=== PATIENT | male | born 1970 | race Caucasian/White ===

== ENCOUNTER → 2017-08-18 | Outpatient (CLI) | payer OTHER ==
[~2017-08-18] MED LIST: NORCO 325 MG-51 TAB PO; PRINIVIL2.5 MG PO; ROXICODONE 55 MG/TAB PO; TRICOR 48MG48 MG PO; ZOCOR5 MG PO
== END ==
LOC: SUN.DIA 13:28
DX: E11.9 Type 2 diabetes mellitus without complications (principal); E78.5 Hyperlipidemia, unspecified; I10 Essential (primary) hypertension; E66.9 Obesity, unspecified; Z68.36 Body mass index [BMI] 36.0-36.9, adult; Z71.3 Dietary counseling and surveillance; Z87.891 Personal history of nicotine dependence
CPT/HCPCS: G0108

== ENCOUNTER → 2017-09-09 | Outpatient (CLI) | payer OTHER | LOC: SUN.DIA 10:51 | DX: E11.9 Type 2 diabetes mellitus without complications (principal); E78.5 Hyperlipidemia, unspecified; I10 Essential (primary) hypertension; E66.9 Obesity, unspecified; Z68.34 Body mass index [BMI] 34.0-34.9, adult; Z71.3 Dietary counseling and surveillance; Z87.891 Personal history of nicotine dependence | CPT/HCPCS: G0108 ==

== ENCOUNTER → 2017-09-16 | Outpatient (CLI) | payer OTHER | LOC: SUN.DIA 11:37 | DX: E11.9 Type 2 diabetes mellitus without complications (principal); E78.5 Hyperlipidemia, unspecified; I10 Essential (primary) hypertension; E66.09 Other obesity due to excess calories; F17.210 Nicotine dependence, cigarettes, uncomplicated | CPT/HCPCS: G0109 ==

== ENCOUNTER → 2017-09-23 | Outpatient (CLI) | payer OTHER | LOC: SUN.DIA 13:15 | DX: E11.9 Type 2 diabetes mellitus without complications (principal); E78.5 Hyperlipidemia, unspecified; I10 Essential (primary) hypertension; E66.9 Obesity, unspecified; F17.210 Nicotine dependence, cigarettes, uncomplicated | CPT/HCPCS: G0109 ==

== ENCOUNTER → 2017-09-30 | Outpatient (CLI) | payer OTHER | LOC: SUN.DIA 08:30 | DX: E11.9 Type 2 diabetes mellitus without complications (principal); E78.5 Hyperlipidemia, unspecified; I10 Essential (primary) hypertension; E66.9 Obesity, unspecified; F17.210 Nicotine dependence, cigarettes, uncomplicated ==

== ENCOUNTER → 2017-10-07 | Outpatient (CLI) | payer OTHER | LOC: SUN.DIA 11:36 | DX: E11.9 Type 2 diabetes mellitus without complications (principal); E78.5 Hyperlipidemia, unspecified; I10 Essential (primary) hypertension; E66.9 Obesity, unspecified; F17.210 Nicotine dependence, cigarettes, uncomplicated | CPT/HCPCS: G0109 ==

== ENCOUNTER 2020-07-19 08:13 | Day surgery (SDC) | payer OTHER ==
[~2020-07-19] VITALS: Ht 182.9 cm; Wt 116.4 kg
[2020-07-19 08:35] VITALS: BP 138/84; PULSE 74; TEMP 98.1
[2020-07-19] MEDS ORDERED: OZEMPIC1 MG/0.75 SQ (09:03)
[2020-07-19] MEDS ORDERED: COZAAR100 MG PO (09:04)
[2020-07-19] MEDS ORDERED: INVOKAMET3 PO (09:04)
[2020-07-19] MEDS ORDERED: LASIX 40MG TABL40 MG PO (09:05)
[2020-07-19] MEDS ORDERED: VASCEPA0.5 GM PO (09:06)
[2020-07-19] MEDS ORDERED: NOVOLOG 100U100 U/M1 SQ (09:08)
[2020-07-19] MEDS ORDERED: ZOLOFT 50MG50 MG PO (09:09)
[2020-07-19] MEDS ORDERED: LOFIBRA160 MG PO (09:10)
[2020-07-19] MEDS ORDERED: LIPITOR 80MG80 MG PO (09:10)
[2020-07-19] MEDS ORDERED: TOUJEO300 U/ML SQ (09:12)
[2020-07-19] MEDS ORDERED: DESYREL 50MG50 MG PO (09:12)
[2020-07-19] MEDS ORDERED: NEXLIZET 180-11 EACH PO (09:15)
[2020-07-19 10:20] VITALS: BP 122/85; PULSE 72; TEMP 97.8
[2020-07-19 10:35] VITALS: BP 127/87; PULSE 76
[2020-07-19 10:50] VITALS: BP 133/78; PULSE 71
--- NOTE | 2020-07-19 11:32 | NUR ---
PT RETURNED FROM ENDO PROCEDURE ROOM INTO BAY#3 PER CART. PT ALERT AND ORIENTATED. PRESENT IN BAY WHEN PT ARRIVED. PT DENIES PAIN OR NAUSEA AT THIS TIME. LUNGS CTA, HRR, BOWEL SOUNDS ACTIVE IN ALL QUADRANTS. PT REQUESTS CHOCOLATE PUDDING AND GRAPE JUICE. PT WAS PROVIDED A WARM BLANKET AND CALL LIGHT. WILL CONT TO MONITOR PROGRESS.
--- NOTE | 2020-07-19 11:36 | NUR ---
PT TOLERATING FOOD AND FLUIDS WITHOUT NAUSEA OR VOMITING. PT TALKING WITH . IVF DISCONTINUED. INT NEEDLE REMAINS. WILL CONT TO MONITOR PROGRESS.
--- NOTE | 2020-07-19 11:38 | NUR ---
PT CONTINUES TO DENY NAUSEA/VOMITING OR PAIN. TOLERATING FOOD AND FLUIDS. IV DC'D TO RIGHT HAND AND TOLERATED WELL. DISMISSAL INSTRUCTIONS WERE PROVIDED, PT DENIES QUESTIONS AND SIGNED DISMISSAL SHEETS. VSS. PT WAS TAKEN TO FAMILY VEHICLE THROUGH PT ENTRANCE UPON DISMISSAL. , TIGIST IS DRIVING.
== END 2020-07-19 11:00 | disposition home or self-care (01) ==
LOC: SDCO 08:13
DX: Z12.11 Encounter for screening for malignant neoplasm of colon (principal); D12.5 Benign neoplasm of sigmoid colon; K62.1 Rectal polyp; I10 Essential (primary) hypertension; E78.5 Hyperlipidemia, unspecified; G47.33 Obstructive sleep apnea (adult) (pediatric); F32.9 Major depressive disorder, single episode, unspecified; F41.9 Anxiety disorder, unspecified; E11.9 Type 2 diabetes mellitus without complications; Z99.89 Dependence on other enabling machines and devices; Z79.899 Other long term (current) drug therapy
CPT/HCPCS: J2704; J7030

== ENCOUNTER → 2020-09-11 | Outpatient (CLI) | payer OTHER ==
[~2020-09-11] MED LIST changes: +COZAAR100 MG PO; +DESYREL 50MG50 MG PO; +ELIQUIS 2.5 PO; +INVOKAMET3 PO; +LASIX 40MG TABL40 MG PO; +LIPITOR 80MG80 MG PO; +LOFIBRA160 MG PO; +NEXLIZET 180-11 EACH PO; +NORCO 325 MG-7.1 TAB PO; +NOVOLOG 100U100 U/M1 SQ; +OZEMPIC1 MG/0.75 SQ; +SENOKOT S 50 MG1 TAB PO; +TOUJEO300 U/ML SQ; +VASCEPA0.5 GM PO; +ZOLOFT 50MG50 MG PO
== END ==
LOC: COL.RAD 06:56
DX: M50.10 Cervical disc disorder with radiculopathy, unspecified cervical region (principal)

== ENCOUNTER 2020-10-01 16:00 | Outpatient (RCR) | payer OTHER ==
[~2020-10-01 16:00] MED LIST changes: -ELIQUIS 2.5 PO; -NORCO 325 MG-7.1 TAB PO; -SENOKOT S 50 MG1 TAB PO
== END 2020-11-13 11:36 | disposition still patient (30) ==
LOC: MKS.ESL.OT 16:00
DX: G56.23 Lesion of ulnar nerve, bilateral upper limbs (principal); G56.03 Carpal tunnel syndrome, bilateral upper limbs

== ENCOUNTER 2020-11-01 11:48 | Inpatient (IN) | payer OTHER ==
[~2020-11-01] VITALS: Ht 180.3 cm; Wt 119.7 kg
[2020-12-25] VITALS (11 sets, daily range): BP systolic 124–164; BP diastolic 67–85; PULSE 63–96; TEMP 97.6–98.4
--- NOTE | 2020-12-25 06:55 | NUR ---
0605 PATIENT ADMITT[place] [facility] [place] [facility] [place] WITH [place]ADY [place]. PATIENT ACCOMPANIES. PATIENT IS ALERT AND ORIENTED X 4. CONSENT EXPLAINED AND PATIENT SIGNED. ASSESSMENT COMPLETED. LUNGS CTA. HEART SOUNDS S1S2 AND REGULAR WITH MUMUR. BOWEL SOUNDS HEARD. SLIGHT EDEMA NOTED TO LOWER LEGS. PEDAL PULSES FELT. LEFT LEG CLEANED PER ORDER.
--- NOTE | 2020-12-25 10:31 | NUR ---
Pt. back from surgery, admitted to room 332. Pt.'s supportive Joelle at bedside. Frequent vital signs in place, vitals WNL at this time. Pt. is able to feel this RN touching his left foot. +pp to all extremeties. Pt. requesting a snack at this time. Pt. oriented to his room and call light. Pt. verbalized understanding. Call light and belongings in reach.
--- NOTE | 2020-12-25 14:34 | NUR ---
Pt. progressing w/ plan of care. Pt. noted to be pale and sweaty. VSS. Blood sugar WNL. GENO Evans attempted to be called, no answer. Voicemail left. at bedside. Call light in reach.
--- NOTE | 2020-12-25 15:00 | NUR ---
This RN spoke w/ nurse assisting w/ Dr. Lainez in the OR. This RN was able to hear Dr. Lainez on the phone. Dr. Lainez aware pt. has been sweaty and pale, he was also made aware his vitals have been WNL except blood pressure a little bit elevated compared to previous BP. New orders obtained, see orders.
--- NOTE | 2020-12-25 20:30 | NUR ---
PATIENT IS ALERT AND ORIENTED X4 SITTING UP IN BED. PATIENT NEEDS ONE ASSIST WITH WALKER. PATIENT UP TO BATHROOM. STEADY GAIT. PATIENT HAS ABEBA AND SCDS ON BILATERAL LOWER EXTREMITIES. PATIENT HAS ICE TO LEFT KNEE AND ELEVATED WITH PILLOW. PATIENT HAS IV TO LEFT HAND. PATIENT IS ON GENERAL DIET AND IS ON ACHS. PATIENT HAS INCENTIVE SPIROMETER AT BEDSIDE AND HAS BEEN TAUGHT HOW TO USE IT. PATIENT STATES THEY ARE NOT SUPPOSE TO TAKE ASPRIN DUE TO KIDNEY ISSUE. PATIENT DENIES PAIN OR FURTHER NEEDS AT THIS TIME. CALL LIGHT WITHIN REACH. HEAD TO TOE ASSESSMENT COMPLETE.
[2020-12-26] VITALS (10 sets, daily range): BP systolic 156–193; BP diastolic 80–96; PULSE 76–113; TEMP 98.1–98.8
--- NOTE | 2020-12-26 04:00 | NUR ---
PATIENT INT, TOLERATING PO LIQUIDS
--- NOTE | 2020-12-26 06:04 | NUR ---
PATIENT SLEPT ON AND OFF THROUGHOUT NIGHT. PAIN MEDS GIVEN PER ORDERS. ICE APPLIED. NO FURTHER NEEDS AT THIS TIME. WILL REPORT TO DAYSHIFT.
[2020-12-26 06:47] LABS: HEMATOCRIT 39.2 % (42.0-52.0); HEMOGLOBIN 13.9 g/dl (13.5-18.0)
--- NOTE | 2020-12-26 06:51 | NUR ---
Bedside shift report complete. Pt. reports he did not sleep overnight. Pt. reports 7/10 pain. This RN explained to the pt. she would be the pt.'s nurse again today and will look into if he is due for anything to help with pain. Call light and belongings in reach. Pt. denies further needs at this time.
--- NOTE | 2020-12-26 08:18 | NUR ---
Pt. progressing w/ plan of care. Pt. reporting pain this AM, pt. given PRN ultram. Pt. vomited a small amount this AM, pt. reports this is normal for him if he doesn't eat first thing in the morning. Pt. reports his nausea usually resolves with a snack. Pt. was given a snack and PRN ultram, effect pending. GENO Evans in to see the pt. this AM as well. AM breakfast ordered. Call light and belongings in reach.
--- NOTE | 2020-12-26 08:49 | NUR ---
Flu shot administered to left deltoid per APR.
--- NOTE | 2020-12-26 11:45 | NUR ---
Pt. worked with therapy and is now OOB in chair. Don bandage removed and dressing removed to left knee. New aquacel dressing applied to patient's left knee. Thigh high tedhoes are now on both left and right legs. Pt. reports increased pain with applying the tedhoes to the left leg, PRN [place] available to be given at 1200.
--- NOTE | 2020-12-26 19:07 | NUR ---
Pt. medicated throughout the day to try to maintain pain levels. Report provided to MARIA TERESA Paredes. Pt. reports needs are addressed at this time.
--- NOTE | 2020-12-26 20:10 | NUR ---
PATIENT HAD BLOOD PRESSURE OF 180/90. DR BARRETO, [employer], CALLED. STATED THAT HIGH BLOOD PRESSURES COULD BE DUE TO PAIN SO TO GIVE PAIN MEDS AND SEE IF THAT LOWERS THE BLOOD PRESSURE AND IF NOT TO ORDER HYDRALAZINE. WILL CONTINUE TO MONITOR.
--- NOTE | 2020-12-26 21:00 | NUR ---
PATIENT IS ALERT AND ORIENTED X3 SITTING UP IN BED. PATIENT HAS INCISION TO LEFT KNEE COVERED BY AQUACELL. PATIENT HAS TEDS AND SCDS TO BILATERAL LOWER EXTREMITIES. PATIENT HAS ICE TO LEFT KNEE. PATIENT ON ADA DIET AND ACHS CHECKS. PATIENT GIVEN PAIN MEDS VIA ORDERS AND HAS LEFT LEG ELEVATED. PATIENT DENIES FURTHER NEEDS AT THIS TIME. WATER REFILLED. HEAD TO TOE ASSESMENT COMPLETE. CALL LIGHT WITHIN REACH.
--- NOTE | 2020-12-26 22:00 | NUR ---
PATIENT BLOOD PRESSURE IS DECREASING. NOW IT IS 168/85. GIVEN ULTRAM PER ORDERS.
--- NOTE | 2020-12-27 00:07 | NUR ---
PATIENT GIVEN IV HYDRALAZINE PER DOCTORS ORDERS DUE TO CONTINUED HIGH BLOOD PRESSURE.
[2020-12-27 00:59] VITALS: BP 160/79
[2020-12-27 03:55] VITALS: BP 189/95; PULSE 112; TEMP 98.9
[2020-12-27 05:00] VITALS: BP 152/78
--- NOTE | 2020-12-27 05:29 | NUR ---
PATIENT DID WELL TRHOUGHOUT NIGHT. SLEPT ON AND OFF. PATIENT HIGH BLOOD PRESSURES RELATED TO PAIN, EVERY TIME PAIN MED IS GIVEN PER ORDERS BLOOD PRESSURE DECREASES. PATIENT DENIES ANY HEADACHES. PATIENT SITTING IN CHAIR NOW. PATIENT DENIES FURTHER NEEDS AT THIS TIME. WILL REPORT TO DAYSHIFT.
[2020-12-27 08:23] VITALS: BP 150/86; PULSE 100; TEMP 99.5
--- NOTE | 2020-12-27 09:19 | NUR ---
Initial visit; Patient thanked Maintenance Operator for visit and offering God's blessings.
--- NOTE | 2020-12-27 10:00 | NUR ---
Patient alert and oriented, answers questions appropriately. See assessment. Left knee with Aquacel CDI. 1+ edema to left knee. Pulses palpable to LLE, sensation intact, no c/o numbness or tingling. FWB. ABEBA [place] and SCDs in place. Post op exercises reviewed. No c/o at this time.
--- NOTE | 2020-12-27 10:58 | NUR ---
warehouse insulation worker met with patient to discuss discharge plan. Patient lives at home with his Joelle ([phone]) in [facility]. Patient reports to being fully independent at home with his ADL's. Does report to using a cane before surgery and also has a walker at home. Reports to having a CPAP machine but could not remember what company he get's his supplies through.PCP is and utilizes [facility] for perscriptions with no cost difficulty. Patient reports that he does not have a DPOA-HC established, but requests a copy of the form for both of them. Form and education provided to both the patient and his . Arrangements have been made for the patient to do out patient PT. Discharge plan: Home with spouse. Out patient PT arranged.
[2020-12-27] MEDS ORDERED: ELIQUIS 2.5 PO (12:53)
[2020-12-27] MEDS ORDERED: NORCO 325 MG-7.1 TAB PO (12:54)
[2020-12-27] MEDS ORDERED: ROXICODONE 55 MG/TAB PO (12:54)
[2020-12-27] MEDS ORDERED: SENOKOT S 50 MG1 TAB PO (12:55)
[2020-12-27 13:26] VITALS: BP 160/81; PULSE 126; TEMP 98.6
--- NOTE | 2020-12-27 16:27 | NUR ---
Discharge instructions reviewed with patient and spouse, verbalized understanding. Discharged via wheelchair to auto/home with spouse at 1610.
== END 2020-12-27 16:10 | disposition home or self-care (01) | DRG 470 ==
LOC: SURG 11-19 07:30 → INPTSU 12-25 05:50 → SURG 12-25 05:50
PROVIDERS: ADMIT Orthopaedic Surgery
PROC: 0SRD0J9 Replacement of Left Knee Joint with Synthetic Substitute, Cemented, Open Approach (ICD-10-PCS; principal; 2020-12-25 07:30)
DX: M17.12 Unilateral primary osteoarthritis, left knee (principal); N04.9 Nephrotic syndrome with unspecified morphologic changes; F41.9 Anxiety disorder, unspecified; I10 Essential (primary) hypertension; F32.9 Major depressive disorder, single episode, unspecified; E78.00 Pure hypercholesterolemia, unspecified; M41.9 Scoliosis, unspecified; E10.9 Type 1 diabetes mellitus without complications; G47.30 Sleep apnea, unspecified
CPT/HCPCS: A9284; C1713; C1776; J0360; J0690; J1815; J2250; J2270; J2405; J2550; J2704; J3010; J7030; J7120

== ENCOUNTER 2022-04-11 08:02 | Emergency (ER) | payer OTHER ==
[~2022-04-11] VITALS: Ht 180.3 cm; Wt 127.3 kg
[~2022-04-11 08:02] MED LIST changes: +ELIQUIS 2.5 PO; +NORCO 325 MG-7.1 TAB PO; +SENOKOT S 50 MG1 TAB PO
[2022-04-11 08:04] VITALS: TEMP 98.7
[2022-04-11 11:45] VITALS: BP 156/78; PULSE 88
== END 2022-04-11 10:13 | disposition home or self-care (01) ==
LOC: COL.ER 08:02
DX: R51.9 Headache, unspecified (principal); E66.9 Obesity, unspecified; R03.0 Elevated blood-pressure reading, without diagnosis of hypertension; Z28.310 Unvaccinated for COVID-19; Z68.39 Body mass index [BMI] 39.0-39.9, adult
CPT/HCPCS: J1200; J1790; J1885; J2765; J7030